=== PATIENT | female | born 1960 | race Two or more races ===

== ENCOUNTER → 2025-05-09 | Outpatient (CLI) | payer MEDICAID, SELFPAY ==
--- NOTE | 2025-05-09 08:49 | XR_ITS ---
Examination: Lumbar spine, 5 views Technique: Lumbar spine AP, lateral, coned lateral lower lumbar spine, bilateral obliques 5 views Exam date and time: May 09, 2025 0855 hours INDICATIONS: Lower back pain months FINDINGS: Moderate facet arthropathy Chronic appearing compressions L2, L3 Moderate lumbar spondylosis Diffuse lumbar disc narrowing moderate L5-S1 No spondylolisthesis IMPRESSION: No acute lumbar fracture Diffuse lumbar degenerative disc disease, moderate L5-S1
--- NOTE | 2025-05-09 08:52 | XR_ITS ---
Examination: Abdomen AP single view Technique: AP portable supine abdomen, single view Exam date and time: May 09, 2025, 0855 hours INDICATIONS: Left lower abdominal pain beginning several months ago. FINDINGS: Moderate stool throughout the colon Surgical clips upper right abdomen. No obstruction Prominent osteopenia IMPRESSION: Nonobstructive bowel gas pattern
== END | disposition home or self-care (01) ==
PROVIDERS: PCP Nurse Practitioner Family; Visit Provider Nurse Practitioner Family
DX: R10.32 Left lower quadrant pain (principal); M51.360 Other intervertebral disc degeneration, lumbar region with discogenic back pain only; M51.370 Other intervertebral disc degeneration, lumbosacral region with discogenic back pain only
CPT/HCPCS: 72110; 74018